=== PATIENT | female | born 1975 ===

== ENCOUNTER 2019-10-20 07:47 | Day surgery (SDC) | payer BC ==
--- NOTE | 2019-10-19 10:15 | PCM.PREANE ---
<Francoise Munoz - Last Filed: 10/20/19 08:24> Preanesthetic Assessment - Anesthesia/Transfusion/Family Hx Anesthesia History: Prior Anesthesia Reaction Type of Anesthesia Reaction: Excessive Nausea/Vomiting Family History of Anesthesia Reaction: No Transfusion History: No Prior Transfusion(s) Intubation History: Unknown - Review of Systems General: No Symptoms Pulmonary: No Symptoms Cardiovascular: No Symptoms Gastrointestinal: No Symptoms, Constipation Neurological: No Symptoms Other: Reports: None (Motion Sickness), Thyroid Problems, Sinus Problem - Physical Assessment Vital Signs: 96.7 99/54 73 16 98% Mental Status: Alert & Oriented x3 Airway Class: Mallampati = 1 Dentition: Reports: Implants (Lower molar right side ) Thyro-Mental Finger Breadths: 3 Mouth Opening Finger Breadths: 3 ROM/Head Extension: Full Lungs: Clear to Auscultation, Normal Respiratory Effort Cardiovascular: Regular Rate, Regular Rhythm - Allergies Allergies/Adverse Reactions: Allergies Allergy/AdvReac Type Severity Reaction Status Date / Time cephalexin Allergy Rash Verified 10/20/19 08:20 gluten Allergy Indigestion Verified 10/20/19 08:20 meperidine [From Demerol] Allergy Vomiting Verified 10/20/19 08:20 Sulfa (Sulfonamide Allergy Rash Verified 10/20/19 08:20 Antibiotics) - Anesthesia Plan Pre-Op Medication Ordered: Other (Scopalamine Patch ) - Acknowledgements Anesthesia Type Planned: General Anesthesia Pt an Appropriate Candidate for the Planned Anesthesia: Yes Alternatives and Risks of Anesthesia Discussed w Pt/Guardian: Yes Pt/Guardian Understands and Agrees with Anesthesia Plan: Yes PreAnesthesia Questionnaire - HOME MEDS Home Medications: Home Meds Cetirizine HCl [Zyrtec] 10 mg PO DAILY 10/19/19 [History] Montelukast Sodium 10 mg PO DAILY 10/19/19 [History] Thyroid [[place] Thyroid] 90 mg PO DAILY 10/19/19 [History] <Ankita Good - Last Filed: 10/20/19 08:38> Preanesthetic Assessment - Procedure Proposed Procedure: Hysteroscopy, Novasure, A & P Repair with perineoplasty, and Sub-fascial mid- urethral sling - Anesthesia/Transfusion/Family Hx Anesthesia History: Prior Anesthesia Reaction Type of Anesthesia Reaction: Excessive Nausea/Vomiting Family History of Anesthesia Reaction: No Transfusion History: No Prior Transfusion(s) Intubation History: Unknown - Review of Systems Gastrointestinal: No Symptoms (History of gastric ulcer), Constipation (Occasional) Other: Reports: Thyroid Problems (Hypothyroid), Sinus Problem (allergic rhinitis) - Physical Assessment NPO Status Date: 10/19/19 Vital Signs: HR: B/P: Sat: Temp: Resp: Height: 1.57 m ASA Class: 2 Mental Status: Alert & Oriented x3 Airway Class: Mallampati = 1 Dentition: Reports: Implants - Lab Values: Laboratory Last Values Urine Color Yellow (Yellow) 10/20/19 08:07 Urine Appearance Clear (Clear) 10/20/19 08:07 Urine pH 6.5 (5.0-8.0) 10/20/19 08:07 Ur Specific [place] 1.015 (1.005-1.030) 10/20/19 08:07 Urine Protein Negative (Negative) 10/20/19 08:07 Urine Glucose (UA) Negative (Negative) 10/20/19 08:07 Urine Ketones Negative (Negative) 10/20/19 08:07 Urine Occult Blood 2+ (Negative) H 10/20/19 08:07 Urine Nitrite Negative (Negative) 10/20/19 08:07 Urine Bilirubin Negative (Negative) 10/20/19 08:07 Urine Urobilinogen 0.2 (0.2-1.0) 10/20/19 08:07 Ur Leukocyte Esterase Negative (Negative) 10/20/19 08:07 - Anesthesia Plan Pre-Op Medication Ordered: None - Acknowledgements Anesthesia Type Planned: General Anesthesia Pt an Appropriate Candidate for the Planned Anesthesia: Yes Alternatives and Risks of Anesthesia Discussed w Pt/Guardian: Yes Pt/Guardian Understands and Agrees with Anesthesia Plan: Yes PreAnesthesia Questionnaire - CURRENT (IN HOUSE) MEDS Current Meds: Current Medications Lactated Ringer's (Ringers, Lactated) 1,000 mls @ 125 mls/hr IV ASDIRECTED ANEUDY Stop: 10/20/19 23:00 Lidocaine/Sodium Bicarbonate (Buffered Lidocaine 1% In Ns 8.4%) 0.25 ml IDERM ONETIME PRN PRN Reason: Prior to IV Start Stop: 10/20/19 18:00 Sodium Chloride (Saline Flush) 10 ml FLUSH ASDIRECTED PRN PRN Reason: Keep Vein Open Stop: 10/20/19 18:00 Discontinued Medications Cefazolin Sodium (Ancef) Confirm Administered Dose 2 gm .ROUTE .STK-MED ONE Stop: 10/20/19 07:32 Dexamethasone (Dexamethasone) Confirm Administered Dose 20 mg .ROUTE .STK-MED ONE Stop: 10/20/19 07:32 Fentanyl (Sublimaze) Confirm Administered Dose 250 mcg .ROUTE .STK-MED ONE Stop: 10/20/19 07:34 Hydromorphone HCl (Dilaudid) Confirm Administered Dose 0.5 mg .ROUTE .ST-MED ONE Stop: 10/20/19 07:33 Lidocaine HCl (Xylocaine-Mpf 1%) Confirm Administered Dose 4 mls @ as directed .ROUTE .ST-MED ONE Stop: 10/20/19 07:32 Lactated Ringer's (Ringers, Lactated) Confirm Administered Dose 1,000 mls @ as directed .ROUTE .STK-MED ONE Stop: 10/20/19 07:32 Ketorolac Tromethamine (Toradol) Confirm Administered Dose 30 mg .ROUTE .ST-MED ONE Stop: 10/20/19 07:32 Lidocaine/Epinephrine (Xylocaine 1% With Epinephrine 1:100,000) Confirm Administered Dose 20 ml .ROUTE .STK-MED ONE Stop: 10/20/19 08:09 Midazolam HCl (Versed 1 Mg/Ml) Confirm Administered Dose 2 mg .ROUTE .STK-MED ONE Stop: 10/20/19 07:33 Miscellaneous Medication (Phenylephrine 1 Mg/10 Ml-Ns) Confirm Administered Dose 1 mg IV .STK-MED ONE Stop: 10/20/19 07:32 Ondansetron HCl (Zofran) Confirm Administered Dose 4 mg .ROUTE .STK-MED ONE Stop: 10/20/19 07:32 Propofol (Diprivan 20 Ml) Confirm Administered Dose 200 mg .ROUTE .STK-MED ONE Stop: 10/20/19 07:33 Rocuronium [place] (Zemuron) Confirm Administered Dose 50 mg .ROUTE .STK-MED ONE Stop: 10/20/19 07:32 Sodium Chloride (Normal Saline) Confirm Administered Dose 50 ml .ROUTE .STK-MED ONE Stop: 10/20/19 08:09
[~2019-10-20 07:47] MED LIST: Dexamethasone 4 MG/ML 5 ML MDV ONE; HYDROmorphone 0.5 MG/0.5 ML Syringe ONE; Ketorolac 30 MG/ML SDV ONE; Lactated Ringers 1,000 ML ONE; Lidocaine 1% 4 ML ONE; Lidocaine 1%/Sod Bicarbonate in NS 8.4% 1 ML Syringe IDERM PRN; Midazolam 1 MG/ML 2 ML SDV ONE; Ondansetron 4 MG/2 ML SDV ONE; Propofol 200 MG/20 ML SDV ONE; Rocuronium 50 MG/5 ML Vial ONE; Sodium Chloride 0.9% 10 ML Syringe FLUSH PRN; ceFAZolin 1 GM Vial ONE; fentaNYL 250 MCG/5 ML SDV ONE
[2019-10-20] MEDS: Lactated Ringers 1,000 ML IV SCH ×2 (08:00→13:07)
[2019-10-20] MEDS ORDERED: Scopolamine 1.5 MG Transdermal Patch TOP ONE (08:30)
[2019-10-20] MEDS ORDERED: diphenhydrAMINE 50 MG/ML SDV ONE (08:41)
[2019-10-20] MEDS: Lidocaine 1% with EPINEPHrine 1:100,000 20 ML MDV ONE ×2 (08:44→09:18)
[2019-10-20] MEDS: Sodium Chloride 0.9% 50 ML SDV ONE ×2 (08:45→09:18)
[2019-10-20] MEDS ORDERED: fentaNYL 100 MCG/2 ML SDV IVPUSH PRN (09:22)
[2019-10-20] MEDS ORDERED: Ondansetron 4 MG/2 ML SDV IVPUSH PRN ×2 (09:22→10:39)
[2019-10-20] MEDS ORDERED: ePHEDrine 50 MG/ML SDV IVPUSH PRN (09:22)
[2019-10-20] MEDS ORDERED: HYDROmorphone 0.5 MG/0.5 ML Syringe IVPUSH PRN (09:23)
[2019-10-20] MEDS ORDERED: ePHEDrine Sulfate/0.9% NaCl/Pf 25 MG/5 ML SYRINGE IV ONE (09:25)
[2019-10-20] MEDS ORDERED: Phenylephrine 1 MG in Sodium Chloride 0.9% 10 ML IV SCH (09:30)
[2019-10-20] MEDS ORDERED: Acetaminophen/oxyCODONE 325-5 MG Tab PO PRN (10:39)
--- NOTE | 2019-10-20 10:48 | PCM.POSTAN ---
POST ANESTHESIA ASSESSMENT - MENTAL STATUS Mental Status: Alert - VITAL SIGNS Vital Signs: Last Vital Signs Temp 97.1 10/20/19 1040 Pulse 67 10/20/19 1040 Resp 13 10/20/19 1040 BP 110/61 10/20/19 1040 Pulse Ox 100 10/20/19 1040 - RESPIRATORY Respiratory Status: Respiratory Rate WNL, Airway Patent, O2 Saturation Stable, Supplemental Oxygen - CARDIOVASCULAR CV Status: Pulse Rate WNL, Blood Pressure Stable - GASTROINTESTINAL GI Status: No Symptoms - POST OP HYDRATION Hydration Status: Adequate & Stable
--- NOTE | 2019-10-20 10:55 | PCM.OPNOTE ---
- General Post-Op/Procedure Note Date of Surgery/Procedure: 10/20/19 Operative Procedure(s): Hysteroscopy, endometrial curettage, NovaSure endometrial ablation, anterior and posterior vaginal repair with perineoplasty, subfascial mid urethral sling. Findings: Patient had a grade 3 cystocele, grade 3 rectocele, grade 1 uterine descensus. Uterus is anterior, upper limits of normal size. No adnexal abnormalities were noted. Introitus was 3 to 4 fingerbreadths size. Pre Op Diagnosis: 1. Cystocele. 2. Rectocele. 3. Stress urinary incontinence. 4. Abnormal uterine bleeding. 5. Uterine descensus Post-Op Diagnosis: Same Anesthesia Technique: General ET Tube Other Anesthesia Type: Lidocaine quarter percent with epinephrinetotal of 30 cclocal Primary Surgeon: Hermes Coles Secondary Surgeon: Tristen Tamayo Anesthesia Provider: Ankita Good Glove Printer: Rosamaria Knight Reason Glove Printer Was Necessary: Retraction, assistance, patient safety, quality of care. Pathology: Endometrial curettings Fluid Replacement, Intraop: 1,200 Output, Urine Amount: 90 EBL in mLs: 20 Complications: None Condition: Good Free Text/Narrative:: Intake & Output 10/19/19 10/20/19 10/20/19 22:59 06:59 14:59 Output Total 90 Balance -90 Procedure: The patient is taking the operative placed in a supine position on the operating table. She received 2 g of Ancef preoperatively for infection prophylaxis and had sequential compression stockings in place for DVT prophylaxis. Patient was given general anesthesia and in 18 to was placed for ventilation. She is placed in a dorsal lithotomy position and prepped and draped in usual fashion. An exam under anesthesia was performed. Findings as described above. A weighted speculum was placed in the vagina. Cervix is visualized. It was grasped anteriorly with a single-tooth tenaculum. Uterus was then sounded to a depth of 8 cm. It is from the anterior, mid position. The cervix was dilated to entrance of a 5 mm 12 rigid hysteroscope. This was placed without problem and normal saline was used as a distending medium. The endometrial cavity was visualized. Findings as described above. Endometrial curettage was performed to obtain a sampling of endometrium. This was done with a medium size sharp curette. Minimal amount tissue was obtained. Minimal bleeding was encountered. NovaSure endometrial ablation was then performed. The cervix was dilated to allow placement of the NovaSure endometrial apparatus. Uterus with cervix was 8.5 cm in length and cervix was 3 cm cervical to the length of the uterus cavity was 5.5 cm cm. The NovaSure device was set to 5.5 centimeters. The image cavities foundry 4.5 cm in width. Uterine cavity integrity check was then performed and was successful. The endometrial cavity was then ablated. Energy was 136. The ablation took approximately 86seconds The array was collapsed and the apparatus was removed. Hysteroscope was then placed back into the endometrial cavity. Blood was flushed out and the findings were consistent with a cauterized endometrial cavity. At this point the scope was removed. The vagina was cleared of old blood, the cervix was released and the weighted speculum was removed. Anterior vaginal repair was performed. 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 Weighted speculum was placed in the vagina and the uppermost portion of the cystocele was identified. Two Allis clamps was placed at that uppermost point at a position approximately 1-1/2 cm lateral to the midline A second Allis clamp was placed approximately 2 cm from the urethral meatus. The areas and infiltrated with lidocaine quarter percent with epinephrine. Approximately 8 mL was used. The 2 lateral Allis clamps were retracted and an epithelial incision was made between the 2 clamps. A midline incision was then made with a Metzenbaum scissors. The overlying epithelium was then dissected off of the underlying vesicovaginal fascia. This all to lateral which when approximately midline was felt to be adequate to reduce the cystocele. When this was done approximately 4 trapezoidal shaped sutures of 0 Monocryl were then placed reapproximating the lateral supportive tissue midline and reducing the cystocele. At this point the excess epithelium bilaterally was removed and the epithelium was closed in a running fashion with 2 short segments to decrease likelihood of shortening of the vagina. My subfascial mid-urethral sling was then performed. Patient's bladder was drained with a red rubber catheter. 90 mL normal urine was removed. The epithelium overlying the urethra was grasped approximately 1 cm from the urethral meatus and approximately 2 cm cephalad from there with Allis clamps. The area of the skin overlying the medial aspect of the obturator foramen on each side just posterior to the origin the abductor longus muscle was marked wit h a marking pen. These 2 areas and the sub-fascial layer of the vaginal were then infiltrated with lidocaine quarter percent with epinephrine-total of approximately 10 mL was used. An incision was made in the epithelium overlying the urethra and 2 small stab wounds 3 mm in length were made in the 2 areas of the panty line of the patient. The subfascial planes and adequately dissected bilaterally to allow placement of the mesh. The helical adapter was then placed through the obturator on patient's left side brought out through the vaginal subfascial plane. Mesh was attached to it and then was pulled back through the obturator foramen. Same was done on the right side. Mesh was then snugged up to the urethra. Dilator 15 mm in diameter was used as a spacer to place the mesh in a tension-free position. At this point the mesh was cut off at the skin surface and the dilator was removed. The midline epithelium was closed with a short running suture of 3-0 Monocryl. Skin incisions were closed with Dermabond skin glue. These bladder was filled with approximately 20/40 cc of normal saline at the very end of the case to facilitate voiding and therefore discharged home. Rectocele repair was then performed. The uppermost portion of the rectocele was identified and was grasped midline with an Allis clamp. The introital area was grasped at approximately the 4:00 and 8:00 positions at the junction of the vaginal and vulvar epithelium. The area of epithelium was then infiltrated with lidocaine quarter percent with epinephrine. A yessica-shaped piece of epithelium was removed from the posterior introital and perineal area. The vaginal epithelium was then undermined superiorly to the top of the rectocele. Was then incised midline. With sharp and blunt dissection the epithelium was then dissected off of the underlying vesicovaginal fascia. At this point approximately 5 sutures of 0 Monocryl were placed to reapproximate the lateral supportive tissue midline and reduce the rectocele. The excess epithelium was then excised and the epithelium overlying the rectocele repair was then reapproximated with a running suture of 3-0 Monocryl. Perineoplasty was then performed with approximately 4 V-shaped stitches of 0 Monocryl in placed to reapproximate the lateral tissue midline, rebuild the perineum about 1 cm and the vagina approximately 1 cm. The epithelium of the introitus and perineal body was then reapproximated using 3-0 Monocryl in an episiotomy repair fashion. At this time sponge, instrument and needle counts were correct. The patient was returned to supine position and was discharged from the operating room in good condition.
--- NOTE | 2019-10-20 12:01 | PCM48HPAN ---
Post Anesthesia Note - EVALUATION WITHIN 48HRS OF ANESTHETIC Vital Signs in Normal Range: Yes Patient Participated in Evaluation: Yes Respiratory Function Stable: Yes Airway Patent: Yes Cardiovascular Function Stable: Yes Hydration Status Stable: Yes Pain Control Satisfactory: Yes Nausea and Vomiting Control Satisfactory: Yes Mental Status Recovered: Yes Vital Signs: Last Vital Signs Temp 36.9 C 10/20/19 11:25 Pulse Resp 12 10/20/19 11:25 BP 98/48 L 10/20/19 11:25 Pulse Ox 100 10/20/19 11:25
[2019-10-20] MEDS ORDERED: Ibuprofen 600 MG Tab PO PRN (13:30)
[2019-10-21] MEDS ORDERED: Thyroid 60 MG Tab PO SCH (09:00)
[2019-10-21] MEDS ORDERED: Loratadine 10 MG Tab PO SCH (09:00)
[2019-10-21] MEDS ORDERED: Montelukast 10 MG Tab PO SCH (09:00)
== END 2019-10-20 18:34 | disposition home or self-care (01) ==
LOC: JD.SDS 07:47 → JD.MS 15:28 → JD.SDS 18:34
PROVIDERS: ATTEND Obstetrics & Gynecology
DX: N39.3 Stress incontinence (female) (male) (principal); N81.4 Uterovaginal prolapse, unspecified; N93.9 Abnormal uterine and vaginal bleeding, unspecified; E03.9 Hypothyroidism, unspecified; Z88.8 Allergy status to other drugs, medicaments and biological substances; Z79.899 Other long term (current) drug therapy
CPT/HCPCS: 51798; 57260; 57288; 58563; 81001; 81025; A9270; C1771; J0171; J0690; J1100; J1170; J1200; J1885; J2001; J2250; J2370; J2405; J2704; J2710; J3010; J7120; 00952; 51702